=== PATIENT | female | born 1995 | race Caucasian/White ===

== ENCOUNTER 2018-12-24 10:42 | Emergency (ER) | payer BC, OTHER ==
--- NOTE | 2018-12-24 12:05 | ED ---
- HPI Summary HPI Summary: Patient is a 23-year-old female who presents emergency for needlestick to left second digit that occurred just prior to arrival. 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 Patient states she administered a subcutaneous insulin injection to a patient when she was recapping the needle slipped and punctured her second finger on left hand. Patient denies past medical history. Immunizations are up -to-date. Patient states first patient has no known blood born illnesses. Source patient's labs ordered by attending. Symptoms are moderate in severity. No current modifying factors. Patient states she cleaned wound with soap and water. - History of Current Complaint Chief Complaint: EDExposureBodyFluid Stated Complaint: NEEDLE EXPOSURE PER PT Time Seen by Provider: 12/24/18 11:21 Needlestick: Hollow Needle PMH/Surg Hx/FS Hx/Imm Hx Previously Healthy: Yes Infectious Disease History: No Infectious Disease History: Denies: Traveled Outside the [place] in Last 30 Days - Family History Known Family History: Positive: Non-Contributory - Social History Occupation: Employed Full-time Lives: With Family Review of Systems Musculoskeletal: Negative Positive: Other - needle stick to left second digit of hand Neurological: Negative All Other Systems Reviewed And Are Negative: Yes Physical Exam Triage Information Reviewed: Yes Vital Signs On Initial Exam: Initial Vitals Temp Pulse Resp BP Pulse Ox 99.7 F 84 18 115/79 98 12/24/18 11:00 12/24/18 11:00 12/24/18 11:00 12/24/18 11:00 12/24/18 11:00 Vital Signs Reviewed: Yes Appearance: Positive: Well-Appearing - Pt. sitting on bed in NAD. Pleasant. Skin: Positive: Warm, Dry Head/Face: Positive: Normal Head/Face Inspection Eyes: Positive: Normal, EOMI Neck: Positive: Supple Musculoskeletal: Positive: Other - Superficial abrsion Neurological: Positive: Normal, CN Intact II-III Diagnostics - Vital Signs Vital Signs Temp Pulse Resp BP Pulse Ox 12/24/18 11:00 99.7 F 84 18 115/79 98 - Laboratory Lab Statement: Any lab studies that have been ordered have been reviewed, and results considered in the medical decision making process. Needlestick Course/Dx - Course Course Of Treatment: Patient presenting for evaluation after a needlestick injury. Source patient's labs are pending. Protocol blood work was ordered. Discuss low risk for prophylactic treatment and patient agrees. Will follow-up with employee health for test results and further testing and treatment as indicated. Patient understands and agrees with plan. - Diagnoses Provider Diagnoses: Needle stick injury Discharge - Sign-Out/Discharge Documenting (check all that apply): Patient Departure Patient Received Moderate/Deep Sedation with Procedure: No - Discharge Plan Condition: Good Disposition: HOME Patient Education Materials: Needle Stick Injuries (ED) Referrals: Jhonny Snow MD [Medical Doctor] - Additional Instructions: Follow up with employee health for testing results and further testing and treatment if indicated Keep wound clean and dry Return to ER if symptoms change or worsen - Billing Disposition and Condition Condition: GOOD Disposition: Home
[2018-12-24 12:21] VITALS: BP 118/68
[2018-12-24 12:59] LABS: Rapid HIV 1 Nonreactive (Nonreactive)
[2018-12-24 13:46] LABS: Hepatitis C Antibody Nonreactive (Nonreactive)
[2018-12-24 13:49] LABS: Hepatitis B Surface Antigen Nonreactive (Nonreactive)
[2018-12-24 14:03] LABS: Hepatitis B Surface AB Not Immune (Immune)
== END 2018-12-24 12:20 | disposition home or self-care (01) ==
LOC: ED 10:42
DX: S61.231A Puncture wound without foreign body of left index finger without damage to nail, initial encounter (principal); W46.1XXA Contact with contaminated hypodermic needle, initial encounter; Y92.230 Patient room in hospital as the place of occurrence of the external cause
CPT/HCPCS: 36415; 86703; 86706; 86803; 87340; 99282

== ENCOUNTER 2019-01-13 08:31 | Emergency (ER) | payer BC ==
[2019-01-13 08:40] VITALS: BP 117/82
[2019-01-13] MEDS ORDERED: Tetan/Diph/Pertus SYR(Tdap)* 0.5 ML SYR(BOOSTRIX) use SYR IM ONE (09:19)
[2019-01-13] MEDS ORDERED: Lidocaine 1%* 5 ML VIAL INJ ONE (09:54)
--- NOTE | 2019-01-13 09:58 | UC ---
Laceration HPI - HPI Summary HPI Summary: Was opening a can this morning and accidentally cut her right thumb on the lid. Last tetanus 6 years ago. - History Of Current Complaint Chief Complaint: UCLaceration Stated Complaint: FINGER LACERATION Time Seen by Provider: 01/13/19 08:43 Hx Obtained From: Patient Hx Last Menstrual Period: no period - nexplanon Laceration Location: Finger - RIGHT THUMB Mechanism Of Injury: Sharp Trauma Onset/Duration: Sudden Onset, Lasting Hours, Still Present Severity: Mild Pain Intensity: 2 Pain Scale Used: 0-10 Numeric Aggravating Factors: Nothing - Allergies/Home Medications Allergies/Adverse Reactions: Allergies Allergy/AdvReac Type Severity Reaction Status Date / Time No Known Allergies Allergy Verified 01/13/19 08:34 Home Medications: Home Medications Etonogestrel [Nexplanon] 68 mg IMPLANT DAILY 01/13/19 [History Confirmed ] Montelukast Sodium TAB* [Singulair 5 mg TAB*] 5 mg PO BEDTIME 01/13/19 [History Confirmed 01/13/19] Sertraline* [Zoloft*] 25 mg PO BEDTIME 01/13/19 [History Confirmed 01/13/19] traZODone TAB* [Desyrel TAB*] 100 mg PO BEDTIME 01/13/19 [History Confirmed 12/27] PMH/Surg Hx/FS Hx/Imm Hx - Additional Past Medical History Additional PMH: SEASONAL ALLERGIES - Surgical History Surgical History: None - Family History Known Family History: Positive: Non-Contributory - Social History Alcohol Use: None Substance Use Type: None Smoking Status (MU): Never Smoked Tobacco - Immunization History Most Recent Tetanus Shot: 2012 Review of Systems All Other Systems Reviewed And Are Negative: Yes Constitutional: Positive: Negative Skin: Positive: Other - RIGHT THUMB LACERATION Respiratory: Positive: Negative Cardiovascular: Positive: Negative Gastrointestinal: Positive: Negative Neurovascular: Positive: Negative Musculoskeletal: Positive: Negative Physical Exam Triage Information Reviewed: Yes Appearance: Well-Appearing, No Pain Distress, Well-Nourished Vital Signs: Initial Vital Signs Temp 98.1 F 01/13/19 08:35 Pulse 70 01/13/19 08:35 Resp 18 01/13/19 08:35 BP 117/82 01/13/19 08:35 Pulse Ox 100 01/13/19 08:35 Vital Signs Reviewed: Yes Eyes: Positive: Conjunctiva Clear ENT: Positive: Hearing grossly normal Neck: Positive: Supple Respiratory: Positive: No respiratory distress, No accessory muscle use Cardiovascular: Positive: Pulses Normal Abdomen Description: Positive: Soft Musculoskeletal: Positive: ROM Intact, No Edema Neurological: Positive: Alert Psychological: Positive: Age Appropriate Behavior Skin: Positive: Other - 1.8CM LINEAR LACERATION PAD OF RIGHT THUMB Laceration Repair - Laceration Repair 1 Description: Linear Laceration Size After Repair: Length (cm) - 1.8CM, Width (mm) - 0MM, Depth (mm) - 3MM Modified For Repair: No Type Injection: Local Anesthesia Used: 1.0% Lido Irrigation With Pressure Irrigation Device: Yes Closure Material: Sutures - 7 SIMPLE INTERRUPTED Closure Method: Single Layer Suture Of: Skin Suture Type: Prolene - 5-0 Laceration Course/Dx - Course/Dx Course Of Treatment: LACERATION REPAIRED. TDAP BOOSTED. NEUROVASCULARLY INTACT. DISCUSSED X-RAY TO EVALUATE FOR BONY INJURY HOWEVER PATIENT IS CERTAIN THE LACERATION DID NOT GO THAT DEEP. X-RAY DECLINED. SUTURES OUT IN ABOUT 10 DAYS. FOLLOW-UP SOONER IF NEEDED. - Diagnosis Provider Diagnosis: Laceration of right thumb Discharge - Sign-Out/Discharge Documenting (check all that apply): Patient Departure All imaging exams completed and their final reports reviewed: No Studies - Discharge Plan Condition: Stable Disposition: HOME Patient Education Materials: Finger Laceration (ED) Forms: *Work Release Referrals: No Primary Care Phys,NOPCP [Primary Care Provider] - Additional Instructions: KEEP DRESSINGS IN PLACE AND DRY FOR THE FIRST 24 HRS. THEN YOU MAY REMOVE THE DRESSING AND GENTLY CLEANSE WITH SOAP AND WATER. PAT DRY AND RE-BANDAGE. APPLY THIN LAYER ANTIBIOTIC OINTMENT UNDER BANDAGE FOR FIRST 3-4 DAYS ONLY. AVOID NEOMYCIN CONTAINING PRODUCTS. CHANGE BANDAGE DAILY AND NEEDED IF IT BECOMES SOILED OR WET. SEEK FOLLOW-UP IF YOU DEVELOP SPREADING REDNESS OF THE SKIN, PURULENT DRAINAGE, FEVER, INCREASED PAIN OR ANY OTHER CONCERNING SYMPTOMS. RETURN TO HAVE YOUR 7 SUTURES REMOVED IN 10 DAYS TETANUS IMMUNIZATION GIVEN (TDAP): You have been given an immunization against tetanus. Please record this in your records. In general, a booster is needed only once every 10 years. The tetanus shot protects against tetanus or "lockjaw," which is a complication of certain wound infections (the tetanus shot cannot protect against the actual infection). The immunization site may become warm and red due to local reaction. If this occurs, apply warm compresses and take aspirin or ibuprofen to reduce inflammation and discomfort. Return for evaluation if the reaction becomes severe. - Billing Disposition and Condition Condition: STABLE Disposition: Home
== END 2019-01-13 10:48 | disposition home or self-care (01) ==
LOC: UCEAST 08:31
DX: S61.011A Laceration without foreign body of right thumb without damage to nail, initial encounter (principal); J30.2 Other seasonal allergic rhinitis; W26.8XXA Contact with other sharp object(s), not elsewhere classified, initial encounter; Y93.89 Activity, other specified; Y92.010 Kitchen of single-family (private) house as the place of occurrence of the external cause
CPT/HCPCS: 12001; 90471; 90715; 99212; G0463

== ENCOUNTER 2019-07-10 12:37 | Emergency (ER) | payer BC ==
[2019-07-10 12:55] VITALS: BP 118/72
--- NOTE | 2019-07-10 13:24 | UC ---
Dizzy HPI HPI Summary: Per upset operator: "Achey,headache, chills for about 3-4 days. 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 No sore throat , sinus pain or pressure. No cough. No chest pain , sob or palpatations." -she started feeling "not well" on 07/07. 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 no known contagious illnesses or flu. she has been off work past 4 days and went in today. had low grade temp 100.5 before work today, took naproxyn w/o relief. temp 101. + at 8:30 AM and took APAP w/ reduction. -she has been feeling pre-syncopal, especially if leaning fwd. + mylagias. 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 she has notcied it other occasions w/ minimal exertion. -no tic bites or other bug bites. -purposefully had no ETOH over past few days bc she wasnt feeling well. -no URI sx, no cough/eat pain/ST/cough. no n/v/d. no dysuria. no rash -she had 2 abscesses and cellulitis for rt great toe infection s/p partial toenail removal. she was on keflex for several weeks which she completed 1 wk ago. it has all resolved -denies prostehtic heart sandra or prosthesis. no murmurs/arrhythmias -denies CP and SOB -no CP or increased sx with leaning fwd -she works at [employer] [place]. didnt go to ER bc she thought it would resolve and wasnt a big deal -denies . has nexplonon. - History Of Current Complaint Chief Complaint: UCRespiratory Stated Complaint: DIZZINESS,FEVER Time Seen by Provider: 07/10/19 13:08 Hx Last Menstrual Period: has the Nexplmon, does not have reg periods Pain Intensity: 2 - Allergies/Home Medications Allergies/Adverse Reactions: Allergies Allergy/AdvReac Type Severity Reaction Status Date / Time bee venom protein (honey bee) Allergy Severe Swelling Verified 07/10/19 12:46 Home Medications: Home Medications Acetaminophen TAB* [Tylenol TAB*] 650 mg PO Q4H PRN 07/10/19 [History Confirmed 07/10/19] Naproxen Sodium [Naproxen 220 mg] 220 mg PO PRN 07/10/19 [History] PMH/Surg Hx/FS Hx/Imm Hx Previously Healthy: Yes - Surgical History Surgical History: None - Family History Known Family History: Positive: Other - reports that everyone is healthy. dad has lipids only, Non-Contributory - Social History Alcohol Use: Rare Substance Use Type: None Smoking Status (MU): Never Smoked Tobacco - Immunization History Most Recent Tetanus Shot: 2012 Review of Systems All Other Systems Reviewed And Are Negative: Yes Constitutional: Positive: Fever, Fatigue Skin: Positive: Negative. Negative: Rash Eyes: Positive: Negative ENT: Negative: Sore Throat, Ear Ache, Nasal Discharge, Sinus Congestion Respiratory: Positive: Negative. Negative: Shortness Of Breath, Cough Cardiovascular: Positive: Palpitations. Negative: Chest Pain Gastrointestinal: Positive: Negative. Negative: Abdominal Pain, Vomiting, Diarrhea, Nausea Genitourinary: Positive: Negative. Negative: Dysuria Motor: Positive: Negative Musculoskeletal: Positive: Arthralgia, Myalgia Neurological: Positive: Negative Psychological: Positive: Negative Is Patient Immunocompromised?: No Physical Exam Triage Information Reviewed: Yes Appearance: Well-Appearing, No Pain Distress, Well-Nourished Vital Signs: Initial Vital Signs Temp 99.2 F 07/10/19 12:48 Pulse 108 07/10/19 12:48 Resp 16 07/10/19 12:48 BP 118/72 07/10/19 12:48 Pulse Ox 98 07/10/19 12:48 Vital Signs Reviewed: Yes Eye Exam: Normal ENT Exam: Normal ENT: Positive: Pharynx normal, TMs normal, Uvula midline. Negative: Nasal congestion, TM bulging, TM dull, TM red, Sinus tenderness Neck exam: Normal Neck: Positive: Supple, Nontender, No Lymphadenopathy Respiratory Exam: Normal Respiratory: Positive: Chest non-tender, Lungs clear, Normal breath sounds, No respiratory distress. Negative: Crackles, Rhonchi, Stridor, Wheezing Cardiovascular Exam: Normal Cardiovascular: Positive: RRR, No Murmur, Pulses Normal Abdominal Exam: Normal Abdomen Description: Positive: Nontender, Soft. Negative: Distended, Guarding, Peritoneal Signs Musculoskeletal Exam: Normal Neurological Exam: Normal Psychological Exam: Normal Skin Exam: Normal Skin: Positive: Other - right great toe w/o erythema or abseces,. no dc.. Negative: Rashes Dizzy Course/Dx - Course Course Of Treatment: 24 yr old w/ fever refractory to naproxyn, lightheadedness and tachycardia at 149 w/o known source of infection. She needs further eval w/ CBC, lytes, thryoid ect. possible blood cx. EKG NSR at 80s. ? t wave abnormality. HR on initial vitals 108. BP and O2 sat nml. good historian. Her fiance has come to pick her up to take her to the closest ER. She is very agreeable _? pericarditis. pt understands. -rapid flu neg, -s/p Karla Nguyen NP at [facility] who accepts pt at 13:50. - Differential Dx/Diagnosis Differential Diagnosis/HQI/PQRI: Dysrhythmia, Metabolic Abnormality Provider Diagnosis: Tachycardia, Fever Discharge ED - Sign-Out/Discharge Documenting (check all that apply): Patient Departure All imaging exams completed and their final reports reviewed: No Studies - Discharge Plan Condition: Good Disposition: TRANS HIGHER LVL OF CARE FAC Referrals: Margarito Patiño NP [Primary Care Provider] - Additional Instructions: Please go directly to the [facility] ER for further evaluation (bc of its proximity ). We talked about the improtance of getting stat blood work and getting prolonged monitor observation because of the heart rate of 149. Rapid flu swab here is negative. - Billing Disposition and Condition Condition: GOOD Disposition: Trans Higher Lvl of Care Fac
[2019-07-10 13:44] LABS: Influenza A Molecular NEGATIVE (Negative); Influenza B Molecular NEGATIVE (Negative)
== END 2019-07-10 13:52 | disposition short-term general hospital (02) ==
LOC: UCCORT 12:37
DX: R00.0 Tachycardia, unspecified (principal); R50.9 Fever, unspecified; R51 Headache; M79.10 Myalgia, unspecified site; R55 Syncope and collapse; R53.83 Other fatigue; J02.9 Acute pharyngitis, unspecified; H92.09 Otalgia, unspecified ear; R09.89 Other specified symptoms and signs involving the circulatory and respiratory systems; R09.81 Nasal congestion; R00.2 Palpitations; Z91.030 Bee allergy status
CPT/HCPCS: 93005; 99212; G0463

== ENCOUNTER 2023-08-03 08:26 | Inpatient (IN) ==
[2023-08-03] MEDS ORDERED: Buffered Lidocaine 1% SYRIN 1 ml INTRADERM ONE (09:51)
[2023-08-03] MEDS ORDERED: Lactated Ringers 1000 ml BAG 1,000 ML IV ONE (09:51)
[2023-08-03] MEDS ORDERED: Sodium Citrate/Citric Acid LIQ 15 ML UDC PO ONE (09:51)
[2023-08-03] MEDS ORDERED: Lactated Ringers 1000 ml BAG 1,000 ML IV SCH ×2 (10:00→16:00)
[2023-08-03 10:46] LABS: ABS Lymphocytes 1.7 10^3/uL (1.0-4.8); ABS Monocytes 0.7 10^3/uL (0.0-0.9); ABS Neutrophils 8.5 10^3/uL (1.5-7.6); Eosinophil % 0.4 %; Hematocrit 38.2 % (35-45); Hemoglobin 13.1 g/dL (11.5-14.3); Lymphocyte % 15.6 %; Mean Corpuscular Hemoglobin 29.6 pg (27-33); Mean Corpuscular Hgb Conc 34.2 g/dL (31-36); Mean Corpuscular Volume 86.3 fL (80-97); Mean Platelet Volume 9.2 fL (7.5-11.2); Platelet Count 260 10^3/uL (150-450); Red Blood Count 4.43 10^6/uL (3.63-4.92); Red Cell Distribution Width 13.9 % (12-17)
[2023-08-03] MEDS ORDERED: fentaNYL 100 mcg/2 ml 50 MCG/ML VIAL ONE (10:47)
[2023-08-03] MEDS ORDERED: Morphine PF AMP (0.5MG/ML) 5 MG/10 ML AMP ONE (10:56)
[2023-08-03] MEDS ORDERED: ceFOXitin 3 GM in NS 0.9% 100 ml BAG 100 ML IVPB ONE (11:00)
[2023-08-03 11:09] LABS: Urine Benzodiazepine Screen None Detected (None Detect); Urine Cannabinoids Screen None Detected (None Detect); Urine Opiates Screen None Detected (None Detect)
[2023-08-03] MEDS ORDERED: Bupivacaine-MPF SPINAL 7.5 MG/ML - 2ML AMP ONE (11:18)
[2023-08-03 11:25] LABS: Albumin 3.5 g/dL (3.2-5.2); Albumin/Globulin Ratio 1.3 (1-3); Creatinine, Serum 0.5 mg/dL (0.51-0.95); Globulin 2.6 g/dL (2-4); Potassium 4.5 mmol/L (3.5-5.0); Total Bilirubin 0.3 mg/dL (0.2-1.0); Total Protein 6.1 g/dL (6.4-8.9); eGFR CKD-EPI 130.9 (>60)
[2023-08-03] MEDS ORDERED: Metoclopramide 5 MG/ML VIAL (10 mg) IV PRN (12:22)
[2023-08-03] MEDS ORDERED: Naloxone 0.4 mg VIAL 0.4 mg/ml 1 ml VIAL IV PUSH PRN (12:22)
[2023-08-03] MEDS ORDERED: Acetaminophen IV 1 GM/100ML 1,000 MG/100 ML BAG IV PRN (12:22)
[2023-08-03] MEDS ORDERED: Propofol 10 MG/ML 20 ML BTL ONE (12:51)
[2023-08-03] MEDS ORDERED: Succinylcholine 200 mg VIAL 20 mg/ml 10 ml VIAL (200 mg) ONE (12:51)
[2023-08-03] MEDS: Ondansetron 4 mg VIAL 2 MG/ML 2 ml VIAL IV PRN (14:45)
[2023-08-03 15:05] LABS: Urine Appearance Clear; Urine Bilirubin Negative (Negative); Urine Blood Negative (Negative); Urine Color Yellow; Urine Glucose Negative (Negative); Urine Ketones Trace (Negative); Urine Nitrite Negative (Negative); Urine Protein 1+(30 mg/dL) (Negative); Urine Specific Gravity 1.019 (1.002-1.030); Urine Urobilinogen Negative (Negative)
[2023-08-03] MEDS ORDERED: Dibucaine 1% OINT 28.35 GM TUBE PR PRN (15:19)
[2023-08-03] MEDS ORDERED: Glycerin ADULT 2.4 gm SUPP PR PRN (15:19)
[2023-08-03] MEDS ORDERED: Witch Hazel PAD JAR TOPICAL PRN (15:19)
[2023-08-03] MEDS ORDERED: Oxytocin in LR 20,000 MILLI.UNIT/1,000 ML BAG IV SCH (15:20)
[2023-08-03 15:47] LABS: Urine Bacteria Absent (Absent); Urine Red Blood Cell Trace(0-2/hpf) (Absent); Urine Squamous Epithelial Cell Present (Absent); Urine White Blood Cell Absent (Absent)
[2023-08-04] MEDS: Ondansetron 4 mg VIAL 2 MG/ML 2 ml VIAL IV PRN ×2 (01:24→01:43)
[2023-08-04] MEDS ORDERED: Furosemide 40 mg/4 ml IV VIAL IV SLOW PU ONE (02:00)
[2023-08-04 07:21] LABS: Hematocrit 27.3 % (35-45); Hemoglobin 9.3 g/dL (11.5-14.3); Mean Corpuscular Hemoglobin 29.8 pg (27-33); Mean Corpuscular Hgb Conc 34.1 g/dL (31-36); Mean Corpuscular Volume 87.4 fL (80-97); Mean Platelet Volume 9.3 fL (7.5-11.2); Platelet Count 227 10^3/uL (150-450); Red Blood Count 3.13 10^6/uL (3.63-4.92); Red Cell Distribution Width 14.3 % (12-17)
[2023-08-04 08:25] LABS: ABS Lymphocytes 2.2 10^3/uL (1.0-4.8); ABS Monocytes 1.6 10^3/uL (0.0-0.9); ABS Neutrophils 13.1 10^3/uL (1.5-7.6); Eosinophil % 0.1 %; Lymphocyte % 12.9 %
[2023-08-05 07:43] VITALS: BP 135/82
== END 2023-08-05 12:55 | disposition home or self-care (01) | DRG 540 ==
LOC: MCHOBOUT 08:26 → MCHOB 09:45
PROVIDERS: ADMIT Obstetrics & Gynecology; ATTEND Obstetrics & Gynecology